=== PATIENT | female | born 1945 | race Caucasian/White ===

== ENCOUNTER → 2018-05-06 | Outpatient (CLI) | payer MEDICARE ==
[~2018-05-06] MED LIST: NAPR220T57 PO; SIMV40TA59 PO
== END | disposition home or self-care (01) ==
LOC: RAH 13:38
PROVIDERS: ATTEND Internal Medicine
DX: N94.89 Other specified conditions associated with female genital organs and menstrual cycle (principal); K80.20 Calculus of gallbladder without cholecystitis without obstruction; K44.9 Diaphragmatic hernia without obstruction or gangrene; Z72.89 Other problems related to lifestyle; M19.90 Unspecified osteoarthritis, unspecified site
CPT/HCPCS: 71250

== ENCOUNTER → 2020-01-12 | Outpatient (CLI) | payer MEDICARE | END | disposition home or self-care (01) | LOC: RAH 10:00 | PROVIDERS: ATTEND Urology | DX: N13.30 Unspecified hydronephrosis (principal); N28.1 Cyst of kidney, acquired; R31.29 Other microscopic hematuria | CPT/HCPCS: 76770 ==

== ENCOUNTER → 2020-02-16 | Outpatient (CLI) | payer MEDICARE | END | disposition home or self-care (01) | LOC: RAH 09:44 | PROVIDERS: ATTEND Urology | DX: K80.80 Other cholelithiasis without obstruction (principal); K57.30 Diverticulosis of large intestine without perforation or abscess without bleeding; J98.11 Atelectasis; N13.39 Other hydronephrosis; I70.0 Atherosclerosis of aorta | CPT/HCPCS: 74176 ==

== ENCOUNTER → 2021-03-27 | Outpatient (CLI) | payer MEDICARE | END | disposition home or self-care (01) | LOC: RAH 10:24 | PROVIDERS: ATTEND Nurse Practitioner Family | DX: M25.512 Pain in left shoulder (principal) | CPT/HCPCS: 73030 ==

== ENCOUNTER → 2021-07-12 | Outpatient (CLI) | payer OTHER | END | disposition home or self-care (01) | LOC: RAH 13:18 | PROVIDERS: ATTEND Family Medicine | DX: Z13.6 Encounter for screening for cardiovascular disorders (principal) | CPT/HCPCS: 75571 ==

== ENCOUNTER → 2022-03-13 | Outpatient (CLI) | payer MEDICARE | END | disposition home or self-care (01) | LOC: RAH 08:47 | PROVIDERS: ATTEND Urology | DX: K57.30 Diverticulosis of large intestine without perforation or abscess without bleeding (principal); N26.1 Atrophy of kidney (terminal); N13.39 Other hydronephrosis; M51.36 Other intervertebral disc degeneration, lumbar region; M41.86 Other forms of scoliosis, lumbar region; Z90.49 Acquired absence of other specified parts of digestive tract | CPT/HCPCS: 74176 ==

== ENCOUNTER 2023-08-23 07:15 | Emergency (ER) | payer MEDICARE ==
[~2023-08-23] VITALS: Ht 170.2 cm; Wt 89.8 kg
[~2023-08-23 07:15] MED LIST changes: +EZET10TA48 PO; +LEVO-70 PO; +LOSA100T59 PO; +MULT-1367 PO; -NAPR220T57 PO; +PRAM0.258 PO; +SERT-439 PO; -SIMV40TA59 PO; +UBID1CAP56 PO
[2023-08-23 08:31] LABS: BASOPHILS # (AUTO) 0.07 K/uL (0.00-0.20); BASOPHILS % (AUTO) 0.6 % (0.0-5.0); EOSINOPHILS # (AUTO) 0.23 K/uL (0.00-0.70); IMMATURE GRANULOCYTE ABSOLUTE 0.06 K/uL (0-1); LYMPHOCYTES # (AUTO) 3.7 K/uL (1.0-4.8); LYMPHOCYTES % (AUTO) 32.2 % (21.0-51.0); MEAN CORPUSCULAR HEMOGLOBIN 29.6 pg (27.0-33.0); MEAN CORPUSCULAR HGB CONC 33.7 g/dL (32.0-36.0); MEAN CORPUSCULAR VOLUME 87.8 fL (79-99); MONOCYTES # (AUTO) 0.8 K/uL (0.1-1.0); MONOCYTES % (AUTO) 6.8 % (3.0-13.0); NEUTROPHILS # (AUTO) 6.6 K/uL (1.8-7.7); NEUTROPHILS % (AUTO) 57.9 % (40.0-77.0); PLATELET COUNT (AUTO) 290 K/uL (130-400); RED BLOOD CELL COUNT(AUTO) 4.67 MIL/uL (4.00-5.50); RED CELL DISTRIBUTION WIDTH 13.6 % (11.0-15.5); WHITE BLOOD COUNT (AUTO) 11.4 K/uL (4.8-10.8)
[2023-08-23 08:50] LABS: ALBUMIN 3.5 g/dL (3.5-5.0); POTASSIUM 3.7 mmol/L (3.5-5.1); TOTAL PROTEIN, SERUM 7.5 g/dL (6.0-8.3)
[2023-08-23] MEDS ORDERED: SOLU-MEDROL 125MG VIAL IVP ONE (09:30)
[2023-08-23] MEDS ORDERED: KETOROLAC 15MG/ML VIAL (15MG/ML) IV ONE (09:30)
[2023-08-23 12:29] VITALS: BP 175/64; PULSE 59; RESP 18; O2SAT 96
[2023-08-23] MEDS ORDERED: METH4TAB3 PO (13:10)
== END 2023-08-23 13:29 | disposition home or self-care (01) ==
LOC: EDH 07:15
DX: M71.22 Synovial cyst of popliteal space [Baker], left knee (principal); M65.9 Synovitis and tenosynovitis, unspecified; M17.12 Unilateral primary osteoarthritis, left knee; I10 Essential (primary) hypertension; Z79.899 Other long term (current) drug therapy; Z90.49 Acquired absence of other specified parts of digestive tract; Z98.890 Other specified postprocedural states; Z88.8 Allergy status to other drugs, medicaments and biological substances
CPT/HCPCS: 99285; 96374; 93971; 96375; 73562; 80053; 85025; 36415; J2930; J1885

== ENCOUNTER → 2023-12-25 | Outpatient (CLI) | payer MEDICARE ==
[~2023-12-25] MED LIST changes: +METH4TAB3 PO
[2023-12-25 09:04] LABS: BASOPHILS # (AUTO) 0.06 K/uL (0.00-0.20); EOSINOPHILS # (AUTO) 0.53 K/uL (0.00-0.70); HEMATOCRIT 43.9 % (36-48); IMMATURE GRANULOCYTE ABSOLUTE 0.01 K/uL (0-1); LYMPHOCYTES # (AUTO) 2.1 K/uL (1.0-4.8); LYMPHOCYTES % (AUTO) 34.7 % (21.0-51.0); MEAN CORPUSCULAR HEMOGLOBIN 29.5 pg (27.0-33.0); MEAN CORPUSCULAR VOLUME 89.2 fL (79-99); MONOCYTES # (AUTO) 0.3 K/uL (0.1-1.0); MONOCYTES % (AUTO) 5.8 % (3.0-13.0); NEUTROPHILS # (AUTO) 2.9 K/uL (1.8-7.7); NEUTROPHILS % (AUTO) 49.3 % (40.0-77.0); PLATELET COUNT (AUTO) 242 K/uL (130-400); RED BLOOD CELL COUNT(AUTO) 4.92 MIL/uL (4.00-5.50); RED CELL DISTRIBUTION WIDTH 13.3 % (11.0-15.5); WHITE BLOOD COUNT (AUTO) 5.9 K/uL (4.8-10.8)
[2023-12-25 09:27] LABS: ALBUMIN 3.3 g/dL (3.5-5.0); BILIRUBIN,TOTAL 0.7 mg/dL (0.2-1.0); CREATININE 0.8 mg/dL (0.5-1.0); POTASSIUM 4.2 mmol/L (3.5-5.1); TOTAL PROTEIN, SERUM 7.5 g/dL (6.0-8.3)
[2023-12-25 09:28] LABS: % IRON SATURATION 20.9 % (22-44)
== END | disposition home or self-care (01) ==
LOC: LAB 08:23
PROVIDERS: ATTEND Internal Medicine Critical Care Medicine
DX: G25.81 Restless legs syndrome (principal); E11.9 Type 2 diabetes mellitus without complications
CPT/HCPCS: 36415; 80053; 82728; 83540; 83550; 84466; 85025; 86140

== ENCOUNTER → 2025-02-02 | Outpatient (CLI) | payer MEDICARE ==
[~2025-02-02] MED LIST changes: +GADOTERATE MEGLUMINE 10 MMOL/20 ML VIAL IV ONE
--- NOTE | 2025-02-02 14:28 | HMCIMG ---
MR BRAIN WW CON HISTORY: Unspecified visual field defect COMPARISON: None TECHNIQUE: MRI of the brain was performed utilizing multiple pulse sequences in axial, coronal and sagittal planes. Patient was given Clariscan through intravenous route. FINDINGS: The ventricles and extraventricular CSF spaces are dilated consistent with cerebral atrophy. Nonspecific white matter changes are seen. There is no midline shift, mass effect or herniation. No subacute hemorrhage is seen. No MR evidence of acute infarct is seen in the diffusion weighted images. Cerebellar tonsils are in normal position. Small bilateral maxillary sinus polyps are seen. No MR evidence of mass lesion or abnormal enhancement is seen. IMPRESSION: 1. No MR evidence of acute infarct is seen in the diffusion weighted images. No mass lesion or abnormal enhancement.
== END | disposition home or self-care (01) ==
LOC: RAH 12:10
PROVIDERS: ATTEND Family Medicine
DX: J33.1 Polypoid sinus degeneration (principal); H53.40 Unspecified visual field defects; G93.89 Other specified disorders of brain; R90.82 White matter disease, unspecified
CPT/HCPCS: 70553; A9575